=== PATIENT | male | born 1960 | race Caucasian/White ===

== ENCOUNTER 2021-11-02 10:00 | Outpatient (REF) | payer OTHER, SELFPAY ==
[2021-11-02 11:45] LABS: Alanine Aminotransferase 13 U/L (0-40); Albumin Level 4.1 g/dL (3.5-5.0); Alkaline Phosphatase 83 U/L (39-117); Anion Gap 13 (12-20); Aspartate Amino Transferase 20 U/L (5-37); Bilirubin Total 0.2 mg/dL (0.0-1.0); Blood Urea Nitrogen 19 mg/dL (9-16); Calcium 9.1 mg/dL (8.4-10.2); Carbon Dioxide 23 mmol/L (22-29); Chloride 104 mmol/L (96-108); Estimated Glomerular Filt Rate > 60; Glucose Random 92 mg/dL (60-115); Potassium 4.4 mmol/L (3.3-5.1); Sodium 136 mmol/L (135-145); Total Protein 7.3 g/dL (6.5-8.0)
== END 2021-11-02 10:01 | disposition home or self-care (01) ==
LOC: HO.HMGCLDS 10:00
PROVIDERS: Visit Provider Physician Assistant Medical
DX: I10 Essential (primary) hypertension (principal)
CPT/HCPCS: 36415; 80053

== ENCOUNTER 2021-11-16 09:37 | Outpatient (REF) | payer OTHER, SELFPAY ==
[2021-11-16 11:17] LABS: Hematocrit 46.6 % (42.0-52.0); Hemoglobin 15.7 g/dl (14.0-18.0); Mean Corpuscular HGB Conc 33.7 g/dl (31.0-36.0); Mean Corpuscular Hemoglobin 30.1 pg (27.0-33.0); Mean Corpuscular Volume 89.3 fL (80.0-98.0); Mean Platelet Volume 9.3 fL (9.4-12.4); Platelet Count 345 X10*3/uL (160-400); Red Blood Count 5.22 X10*6/uL (4.60-5.80); Red Cell Distribution Width 13.8 % (11.0-16.0); White Blood Count 12.7 X10*3/uL (4.8-10.8)
[2021-11-16 11:27] LABS: Alanine Aminotransferase 17 U/L (0-40); Albumin Level 4.2 g/dL (3.5-5.0); Alkaline Phosphatase 85 U/L (39-117); Anion Gap 13 (12-20); Aspartate Amino Transferase 25 U/L (5-37); Bilirubin Direct < 0.2 mg/dL (0.0-0.5); Bilirubin Total 0.3 mg/dL (0.0-1.0); Blood Urea Nitrogen 15 mg/dL (9-16); Carbon Dioxide 27 mmol/L (22-29); Chloride 93 mmol/L (96-108); Cholesterol 204 mg/dL; Estimated Glomerular Filt Rate > 60; Glucose Random 106 mg/dL (60-115); HDL Cholesterol 44 mg/dL; LDL Cholesterol Calculated 142 mg/dl; Potassium 3.8 mmol/L (3.3-5.1); Sodium 129 mmol/L (135-145); Total Protein 7.3 g/dL (6.5-8.0); Triglycerides 90 mg/dL
[2021-11-16 11:50] LABS: Thyroid Stimulating Hormone 1.04 uIU/mL (0.32-4.0)
== END 2021-11-16 09:38 | disposition home or self-care (01) ==
LOC: HO.HMGCLDS 09:37
PROVIDERS: Visit Provider Internal Medicine
DX: I10 Essential (primary) hypertension (principal)
CPT/HCPCS: 36415; 80048; 80061; 80076; 84443; 85027

== ENCOUNTER 2022-03-14 08:30 | Outpatient (REF) | payer OTHER, SELFPAY ==
[2022-03-14 11:23] LABS: Appearance Urine Clear; Color Urine Yellow; Glucose Urine UA Negative (Negative); Leukocyte Esterase Urine Negative (Negative); Nitrite Urine Negative (Negative); Specific Gravity - Urine <= 1.005 (1.005-1.025); Urine Blood Negative (Negative); Urine Ketones Negative (Negative); Urine Protein Trace mg/dL (Neg-Trace)
[2022-03-14 11:27] LABS: MANUAL DIFF FLAG NO
[2022-03-14 11:29] LABS: Bacteria Urine None Seen (None Seen); Hyaline Casts Urine 0-2 /LPF (0-2); RBC Urine 0-2 /HPF (0-2); Squamous Epithelial Cell Urine 0-2 /HPF (0-2); WBC Urine 0-5 /HPF (0-5)
[2022-03-14 11:46] LABS: Basophils Percent Auto 0.3 % (0-2); Eosinophils Absolute Auto 0.1 X10*3/uL (0.0-0.4); Eosinophils Percent Auto 0.6 % (0-4); Hematocrit 49.5 % (42.0-52.0); Imm Gran Abs Auto 0.03 X10*3/uL (0.00-0.03); Imm Gran Pct Auto 0.3 % (0.0-0.4); Lymphocytes Absolute Auto 2.5 X10*3/uL (1.2-4.9); Lymphocytes Percent Auto 21.3 % (20-40); Mean Corpuscular HGB Conc 32.3 g/dl (31.0-36.0); Mean Corpuscular Hemoglobin 30.5 pg (27.0-33.0); Mean Corpuscular Volume 94.3 fL (80.0-98.0); Mean Platelet Volume 9.7 fL (9.4-12.4); Monocytes Absolute Auto 0.9 X10*3/uL (0.1-1.2); Monocytes Percent Auto 7.9 % (2-11); Neutrophils Absolute Auto 8.2 x10*3/uL (2.0-8.3); Neutrophils Percent Auto 69.6 % (45-73); Platelet Count 313 X10*3/uL (160-400); Red Blood Count 5.25 X10*6/uL (4.60-5.80); Red Cell Distribution Width 13.9 % (11.0-16.0); White Blood Count 11.7 X10*3/uL (4.8-10.8)
[2022-03-14 12:23] LABS: Alanine Aminotransferase 18 U/L (0-40); Albumin Level 4.1 g/dL (3.5-5.0); Alkaline Phosphatase 105 U/L (39-117); Aspartate Amino Transferase 25 U/L (5-37); Bilirubin Total 0.3 mg/dL (0.0-1.0); Blood Urea Nitrogen 13 mg/dL (9-16); Calcium 9.6 mg/dL (8.4-10.2); Estimated Glomerular Filt Rate > 60; Glucose Random 87 mg/dL (60-115); Total Protein 7.3 g/dL (6.5-8.0)
[2022-03-14 12:49] LABS: Anion Gap 18 (12-20); Carbon Dioxide 25 mmol/L (22-29); Chloride 102 mmol/L (96-108); Potassium 5.9 mmol/L (3.3-5.1); Sodium 139 mmol/L (135-145)
== END 2022-03-14 08:31 | disposition home or self-care (01) ==
LOC: HO.HMGCLDS 08:30
PROVIDERS: PCP Internal Medicine; Visit Provider Internal Medicine
DX: Z00.00 Encounter for general adult medical examination without abnormal findings (principal); I10 Essential (primary) hypertension
CPT/HCPCS: 36415; 80053; 81001; 85025

== ENCOUNTER 2022-03-21 09:42 | Outpatient (REF) | payer OTHER, SELFPAY ==
[2022-03-21 12:35] LABS: Anion Gap 15 (12-20); Blood Urea Nitrogen 13 mg/dL (9-16); Carbon Dioxide 23 mmol/L (22-29); Chloride 105 mmol/L (96-108); Estimated Glomerular Filt Rate 57; Glucose Random 116 mg/dL (60-115); Potassium 4.9 mmol/L (3.3-5.1); Sodium 138 mmol/L (135-145)
== END 2022-03-21 09:43 | disposition home or self-care (01) ==
LOC: HO.HMGCLDS 09:42
PROVIDERS: PCP Internal Medicine; Visit Provider Internal Medicine
DX: E87.5 Hyperkalemia (principal)
CPT/HCPCS: 36415; 80048

== ENCOUNTER 2022-05-19 08:32 | Outpatient (REF) | payer OTHER, SELFPAY ==
[2022-05-19 11:40] LABS: Estimated Average Glucose 117 mg/dL; Hemoglobin A1c % 5.7 %
[2022-05-19 11:44] LABS: Alanine Aminotransferase 21 U/L (0-40); Albumin Level 4.4 g/dL (3.5-5.0); Alkaline Phosphatase 74 U/L (39-117); Anion Gap 14 (12-20); Aspartate Amino Transferase 31 U/L (5-37); Bilirubin Total 0.3 mg/dL (0.0-1.0); Blood Urea Nitrogen 22 mg/dL (9-16); Calcium 9.6 mg/dL (8.4-10.2); Carbon Dioxide 24 mmol/L (22-29); Chloride 99 mmol/L (96-108); Cholesterol 190 mg/dL; Estimated Glomerular Filt Rate 57; Glucose Fasting 85 mg/dL (60-99); HDL Cholesterol 54 mg/dL; LDL Cholesterol Calculated 116 mg/dl; Potassium 4.5 mmol/L (3.3-5.1); Sodium 132 mmol/L (135-145); Total Protein 7.6 g/dL (6.5-8.0); Triglycerides 104 mg/dL
== END 2022-05-19 08:33 | disposition home or self-care (01) ==
LOC: HO.HMGCLDS 08:32
PROVIDERS: PCP Internal Medicine; Visit Provider Internal Medicine
DX: E78.5 Hyperlipidemia, unspecified (principal); E87.5 Hyperkalemia; I10 Essential (primary) hypertension
CPT/HCPCS: 36415; 80053; 80061; 83036

== ENCOUNTER 2022-08-22 11:30 | Outpatient (REF) | payer OTHER, SELFPAY ==
[2022-08-22 14:23] LABS: Alanine Aminotransferase 14 U/L (0-40); Albumin Level 4.3 g/dL (3.5-5.0); Alkaline Phosphatase 98 U/L (39-117); Anion Gap 15 (12-20); Aspartate Amino Transferase 22 U/L (5-37); Bilirubin Total 0.4 mg/dL (0.0-1.0); Blood Urea Nitrogen 18 mg/dL (9-16); Calcium 9.2 mg/dL (8.4-10.2); Carbon Dioxide 25 mmol/L (22-29); Chloride 98 mmol/L (96-108); Estimated Glomerular Filt Rate > 60; Glucose Random 85 mg/dL (60-115); Potassium 4.5 mmol/L (3.3-5.1); Sodium 133 mmol/L (135-145); Total Protein 7.4 g/dL (6.5-8.0)
== END 2022-08-22 11:31 | disposition home or self-care (01) ==
LOC: HO.HMGCLDS 11:30
PROVIDERS: PCP Internal Medicine; Visit Provider Internal Medicine
DX: E87.1 Hypo-osmolality and hyponatremia (principal); I10 Essential (primary) hypertension
CPT/HCPCS: 36415; 80053